=== PATIENT | female | born 1985 | race Caucasian/White ===

== ENCOUNTER 2016-07-28 16:15 | Inpatient (IN) | payer OTHER ==
[2016-07-28] MEDS ORDERED: HEPARIN NA (PORCINE) 5,000 UNITS/ML 1ML VIAL SQ ONE (17:15)
[2016-07-28] MEDS ORDERED: DEXTROSE 5%-LACTATED RINGERS 1,000 ML IV SCH (17:15)
[2016-07-28] MEDS ORDERED: TUBERCULIN PPD 5 TU/0.1ML SYRINGE (IN PATIENT USE ONLY) ID ONE (17:29)
[2016-07-28 17:33] VITALS: BMI 30.1
--- NOTE | 2016-07-28 18:12 | HP ---
Past Medical History - Admission Chief Complaint: High risk History of Present Illness: 31 yo @ 39 weeks gestations, EDC 08/04/16, with h/o DVT, on Lovenox, admitted for induction of labor. She denies any vaginal bleeding nor contractions pain. History Source: Patient Limitations to Obtaining History: No Limitations - Past Medical History ...: 7 ...Para: 6 ...Term: 5 ...: 1 ...Spon : 0 ...Induced : 0 ...Multiple Gestation: 0 ...EDC by [facility]: 08/04/16 - Past Surgical History Past Surgical History: Yes: None Hx Myomectomy: No Hx Transabdominal Cerclage: No - Smoking History Smoking history: Former smoker Have you smoked in the past 12 months: No Aproximately how many cigarettes per day: 0 - Alcohol/Substance Use Hx Alcohol Use: No History of Substance Use: reports: None - Social History Usual Living Arrangement: Yes: With Spouse History of Recent Travel: No Home Medications - Allergies Allergies/Adverse Reactions: Allergies Allergy/AdvReac Type Severity Reaction Status Date / Time No Known Allergies Allergy Verified 07/28/16 16:56 - Home Medications Home Medications: Ambulatory Orders Aspirin 81 mg PO DAILY 04/25/16 Lovenox 40 mg IM DAILY 04/25/16 Vitamins (Sjr) - 1 tab PO DAILY 07/27/16 Family Disease History - Family Disease History Family History: Unremarkable Review of Systems - Review of Systems Constitutional: reports: No Symptoms Eyes: reports: No Symptoms HENT: reports: No Symptoms Neck: reports: No Symptoms Cardiovascular: reports: No Symptoms Respiratory: reports: No Symptoms Gastrointestinal: reports: No Symptoms Genitourinary: reports: No Symptoms Breasts: reports: No Symptoms Reported Neurological: reports: No Symptoms Endocrine: reports: No Symptoms Hematology/Lymphatic: reports: No Symptoms Psychiatric: reports: No Symptoms Pain Intensity: 0 Physical Exam - Maternity Vital Signs: Vital Signs Temperature 97.9 F 07/28/16 16:45 Pulse Rate 80 07/28/16 16:45 Respiratory Rate 18 07/28/16 16:45 Blood Pressure 113/71 07/28/16 16:45 O2 Sat by Pulse Oximetry (%) Constitutional: Yes: Well Nourished Eyes: Yes: Conjunctiva Clear HENT: Yes: Atraumatic Neck: Yes: Supple Cardiovascular: Yes: Regular Rate and Rhythm - Abdominal Exam/OB Number of Fetuses: Single Presentation: Vertex Contractions: No Accelerations: None - Vaginal Exam/OB Speculum Exam: No - Physical Exam ...Motor Strength: WNL Psychiatric: Yes: Alert, Oriented Problem List - Problems (1) Eloped Code(s): Z91.19 - PATIENT'S NONCOMPLIANCE W OTH MEDICAL TREATMENT AND REGIMEN (2) Previous stillbirth or demise, antepartum Code(s): O09.299 - SUPRVSN OF PREG W POOR REPRODCTV OR OBSTET HISTORY, UNSP TRI (3) H/O thromboembolism of vein Code(s): Z86.718 - PERSONAL HISTORY OF OTHER VENOUS THROMBOSIS AND EMBOLISM Assessment/Plan IUP @ 39 weeks H/O stillbirth Personal h/o DVT Admit for induction of labor IV Heparin DVT prophylaxis
[2016-07-28] MEDS ORDERED: DINOPROSTONE 10 MG VAGINAL SUPPOSITORY VG ONE (19:10)
[2016-07-28 19:20] LABS: BASOPHIL 0.8 % (0-2.0); EOSINOPHIL 0.8 % (0-4.5); MCH 27.1 pg (25.7-33.7); MCHC 32.2 g/dl (32.0-36.0); MEAN CELL VOLUME 84.2 fl (80-96); MEAN PLT VOLUME 8.6 fl (7.5-11.1); NEUTROPHILS 73.9 % (42.8-82.8); PLATELET COUNT 298 K/MM3 (134-434); RDW 14.1 % (11.6-15.6); WHITE BLOOD COUNT 9.7 K/mm3 (4.0-10.0)
[2016-07-28 19:37] LABS: INR 0.92 (0.82-1.09); PROTHROMBIN TIME (PATIENT) 10.1 SEC (9.98-11.88)
[2016-07-28 19:39] LABS: ACTIVATED PTT 24.2 SECONDS (26.9-34.4)
[2016-07-28 19:46] LABS: CALCIUM 8.7 mg/dL (8.5-10.1); COCKROFT - GAULT 209.1; CREATININE 0.5 mg/dL (0.55-1.02)
[2016-07-28 20:29] LABS: HIV 1 & 2 AB NEGATIVE; HIV 1 AGp24 NEGATIVE
[2016-07-29] MEDS ORDERED: AMPICILLIN 2 GM/100 ML BAG (PRE-DOCKED) IVPB ONE
[2016-07-29] MEDS ORDERED: BUTORPHANOL TARTRATE 1 MG/ML VIAL IVPB PRN ×2 (00:45→03:15)
[2016-07-29] MEDS ORDERED: ELECTROLYTE-148 SOLN 1,000 ML IV SCH (03:15)
--- NOTE | 2016-07-29 03:42 | PN ---
Progress Note (short form) - Note Progress Note: Patient seen and evaluated, she c/o moderate discomfort. Status post stadol for pain. FHR : No acceleration ( Stadol effect ) [place] : + irregular contractions. VE : / -2 Intact membrane Cervidil removed A/P : Status post cervidil induction Epidural anesthesia Consider Pitocin augmentation after epidural Anticipate Problem List - Problems (1) Eloped Code(s): Z91.19 - PATIENT'S NONCOMPLIANCE W OTH MEDICAL TREATMENT AND REGIMEN (2) Previous stillbirth or demise, antepartum Code(s): O09.299 - SUPRVSN OF PREG W POOR REPRODCTV OR OBSTET HISTORY, UNSP TRI (3) H/O thromboembolism of vein Code(s): Z86.718 - PERSONAL HISTORY OF OTHER VENOUS THROMBOSIS AND EMBOLISM
[2016-07-29] MEDS ORDERED: OXYTOCIN 15 UNITS/ LR 250 ML 250 ML IVPB SCH (03:45)
[2016-07-29] MEDS ORDERED: AMPICILLIN (PRE-DOCKED) 1 GM/100 ML BAG IVPB SCH (04:00)
[2016-07-29] MEDS ORDERED: FENTANYL/BUPIVACAINE/NS/PF - PCEA - 50 ML DISP.SYRIN EP SCH (04:00)
[2016-07-29] MEDS ORDERED: BISACODYL 10 MG SUPP.RECT RC PRN (06:15)
[2016-07-29] MEDS ORDERED: METHYLERGONOVINE MALEATE 0.2 MG/1 ML AMP IM PRN (06:15)
[2016-07-29] MEDS ORDERED: WITCH HAZEL 50% (TUCKS) 40 PAD/JAR PAD TP PRN (06:15)
[2016-07-29] MEDS ORDERED: D5W-LR W/ 20 UNITS OXYTOCIN 1,000 ML IV SCH (06:15)
[2016-07-29] MEDS ORDERED: BENZOCAINE 20% 57 GM BOTTLE TP PRN (06:15)
[2016-07-29] MEDS ORDERED: BENZOCAINE 28 GM HEMORRHOIDAL OINTMENT TP PRN (06:15)
--- NOTE | 2016-07-29 06:19 | PN ---
Delivery - Delivery Vaginal Delivery: Spontaneous Type of Anesthesia: Epidural Episiotomy/Laceration: None EBL (cc): 250 Delivery, Single - Feeding Plan Initial Plan: Elected not to breastfeed exclusively throughout hospitalization Remarks - Remarks Remarks: Normal spontaneous vaginal delivery of a live infant girl over intact perineum. Nose / Oropharynx suctioned @ perineum. Cord clamped and cut. Placenta expelled spontaneously intact. Mother in stable condition.
[2016-07-29] MEDS: FERROUS SO4 325 MG TABLET (FP) PO SCH ×3 (09:20→16:59)
[2016-07-29] MEDS: PRENATAL VITAMINS W/ FOLIC ACID TABLET (FP) PO SCH (09:48)
[2016-07-29] MEDS: IBUPROFEN 600 MG TABLET (FP) PO PRN ×3 (11:06→21:39)
[2016-07-29] MEDS: ACETAMINOPHEN 325 MG TABLET (FP) PO PRN ×3 (11:07→21:38)
[2016-07-29] MEDS ORDERED: diphenhydrAMINE HCL 25 MG CAPSULE (FP) PO ONE (23:30)
[2016-07-30] MEDS: FERROUS SO4 325 MG TABLET (FP) PO SCH ×3 (08:13→17:21)
[2016-07-30] MEDS: ACETAMINOPHEN 325 MG TABLET (FP) PO PRN ×2 (08:13→17:20)
[2016-07-30] MEDS: IBUPROFEN 600 MG TABLET (FP) PO PRN ×2 (08:13→17:21)
[2016-07-30 08:48] LABS: BASOPHIL 0.8 % (0-2.0); EOSINOPHIL 1.6 % (0-4.5); MCH 27.3 pg (25.7-33.7); MCHC 32.4 g/dl (32.0-36.0); MEAN CELL VOLUME 84.1 fl (80-96); MEAN PLT VOLUME 8.4 fl (7.5-11.1); NEUTROPHILS 71.2 % (42.8-82.8); PLATELET COUNT 261 K/MM3 (134-434); RDW 14.2 % (11.6-15.6); WHITE BLOOD COUNT 8.8 K/mm3 (4.0-10.0)
[2016-07-30] MEDS ORDERED: PNEUMOC 13-VAL CONJ-DIP CRM/PF 0.5 ML DISP.SYRIN IM ONE (10:00)
[2016-07-30] MEDS ORDERED: PNEUMOCOCCAL 23 VACCINE 0.5 ML VIAL IM ONE (10:00)
[2016-07-30] MEDS ORDERED: INFLUENZA VACCINE 60 MCG/0.5 ML (P/F DISP.SYRIN 16-17) IM ONE (10:00)
[2016-07-30] MEDS ORDERED: DIPHTH,PERTUSS(ACELL),TET 0.5 ML DISP.SYRIN IM ONE (10:00)
[2016-07-30] MEDS: PRENATAL VITAMINS W/ FOLIC ACID TABLET (FP) PO SCH (10:02)
[2016-07-30] MEDS: ENOXAPARIN NA (PORCINE) 40 MG/0.4 ML DISP.SYRIN SQ SCH (10:02)
--- NOTE | 2016-07-30 13:14 | PN ---
Post Progress Note - Subjective Subjective: 31 yo Para 5 with h/o DVT, is status post vaginal delivery. She's seen and evaluated, no complaints. No calf tenderness. Post Day: 1 Type of Delivery: Vital Signs: Vital Signs Temperature 98.2 F 07/30/16 10:00 Pulse Rate 70 07/30/16 10:00 Respiratory Rate 18 07/30/16 10:00 Blood Pressure 110/77 07/30/16 10:00 O2 Sat by Pulse Oximetry (%) 99 07/29/16 07:00 Breast Exam: Yes: Soft Uterus: Yes: Fundus Firm Abdomen/GI: Yes: Abdomen soft, Tolerating PO Lochia: Yes: Rubra Lochia, amount: Moderate Extremities: Yes: Calves non-tender Perineum: Yes: Intact Activity: Ambulating - Labs Labs: CBC WBC 8.8 K/mm3 (4.0-10.0) 07/30/16 08:10 RBC 3.81 M/mm3 (3.60-5.2) 07/30/16 08:10 Hgb 10.4 GM/dL (10.7-15.3) L 07/30/16 08:10 Hct 32.0 % (32.4-45.2) L 07/30/16 08:10 MCV 84.1 fl (80-96) 07/30/16 08:10 MCHC 32.4 g/dl (32.0-36.0) 07/30/16 08:10 RDW 14.2 % (11.6-15.6) 07/30/16 08:10 Plt Count 261 K/MM3 (134-434) 07/30/16 08:10 MPV 8.4 fl (7.5-11.1) 07/30/16 08:10 Neutrophils % 71.2 % (42.8-82.8) 07/30/16 08:10 Lymphocytes % 19.7 % (8-40) 07/30/16 08:10 Monocytes % 6.7 % (3.8-10.2) 07/30/16 08:10 Eosinophils % 1.6 % (0-4.5) D 07/30/16 08:10 Basophils % 0.8 % (0-2.0) 07/30/16 08:10 Problem List - Problems (1) Eloped Code(s): Z91.19 - PATIENT'S NONCOMPLIANCE W OTH MEDICAL TREATMENT AND REGIMEN (2) Previous stillbirth or demise, antepartum Code(s): O09.299 - SUPRVSN OF PREG W POOR REPRODCTV OR OBSTET HISTORY, UNSP TRI (3) H/O thromboembolism of vein Code(s): Z86.718 - PERSONAL HISTORY OF OTHER VENOUS THROMBOSIS AND EMBOLISM Assessment/Plan Status Post Normal spontaneous vaginal delivery Stable Continue Lovenox Discharge home tomorrow
--- NOTE | 2016-07-30 13:17 | DS ---
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 Vital Signs: Vital Signs Temperature 98.2 F 07/30/16 10:00 Pulse Rate 70 07/30/16 10:00 Respiratory Rate 18 07/30/16 10:00 Blood Pressure 110/77 07/30/16 10:00 O2 Sat by Pulse Oximetry (%) 99 07/29/16 07:00 Constitutional: Yes: Well Nourished Eyes: Yes: Conjunctiva Clear HENT: Yes: Atraumatic Neck: Yes: Supple, Trachea Midline Cardiovascular: Yes: Regular Rate and Rhythm Respiratory: Yes: Regular, CTA Bilaterally Gastrointestinal: Yes: Normal Bowel Sounds ...Rectal Exam: Yes: WNL External Genitalia: Yes: Normal Vaginal Exam: Yes: Normal Cervix: Yes: Normal Uterus: Yes: Firm ....Post : Yes: Uterus firm, Moderate lochia serosa Breast(s): Yes: WNL (No engorgement) Musculoskeletal: Yes: WNL Extremities: Yes: WNL Neurological: Yes: Alert, Oriented ...Motor Strength: WNL Psychiatric: Yes: Alert, Oriented Labs: CBC, BMP 07/30/16 08:10 07/28/16 17:40 Delivery - Delivery Vaginal Delivery: Spontaneous Type of Anesthesia: Epidural Episiotomy/Laceration: None EBL (cc): 250 Delivery, Single - Stages of Labor Date 1st Stage Initiatied: 07/29/16 Time 1st Stage Initiated: 00:45 Date 2nd Stage Initiated: 07/29/16 Time 2nd Stage Initiated: 05:45 Date of Delivery: 07/29/16 Time of Delivery: 05:59 Time Placenta Delivered: 06:01 - Condition of Infant 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 Condition: Good - Instructions Diet, Activity, Other Instructions: Regular diet No sexual intercourse, no douching x 6 weeks Referrals: Kathia Medellin MD [Staff Physician] - Disposition: HOME - Home Medications Comprehensive Discharge Medication List: Ambulatory Orders Aspirin 81 mg PO DAILY 04/25/16 Lovenox 40 mg SQ DAILY 04/25/16 Vitamins (Sjr) - 1 tab PO DAILY 07/27/16
[2016-07-30] MEDS ORDERED: SENNOSIDES/DOCUSATE COMBO (SENNA PLUS) TABLET (UD) PO PRN (22:00)
[2016-07-31] MEDS: IBUPROFEN 600 MG TABLET (FP) PO PRN ×2 (08:01)
[2016-07-31] MEDS: ACETAMINOPHEN 325 MG TABLET (FP) PO PRN ×2 (08:01)
[2016-07-31] MEDS: FERROUS SO4 325 MG TABLET (FP) PO SCH ×2 (08:02→11:38)
[2016-07-31] MEDS: ENOXAPARIN NA (PORCINE) 40 MG/0.4 ML DISP.SYRIN SQ SCH (10:34)
[2016-07-31] MEDS: PRENATAL VITAMINS W/ FOLIC ACID TABLET (FP) PO SCH (10:34)
[2016-07-31 11:23] VITALS: BP 114/74; PULSE 73; TEMP 97.9
== END 2016-07-31 14:30 | disposition home or self-care (01) | DRG 560 ==
LOC: JLDR 16:15 → J3W 07-29 07:59
PROVIDERS: ADMIT Obstetrics & Gynecology; ATTEND Obstetrics & Gynecology
PROC: 10E0XZZ Delivery of Products of Conception, External Approach (ICD-10-PCS; principal; 2016-07-29)
DX: O80 Encounter for full-term uncomplicated delivery (principal); Z3A.39 39 weeks gestation of pregnancy; Z37.0 Single live birth; Z86.718 Personal history of other venous thrombosis and embolism
CPT/HCPCS: 36415; 59409; 71010-TC; 71020-TC; 80048; 85025; 85610; 85730; 86593; 86850; 86900; 86901; 87389; 90686; 90715; 90732; G0008; G0009; J1644